=== PATIENT | male | born 1950 | race Caucasian/White ===

== ENCOUNTER 2019-12-09 13:48 | Emergency (ER) | payer MEDICARE, OTHER, SELFPAY ==
[2019-12-09 13:58] VITALS: BP 148/85; PULSE 83; RESP 18; TEMP 37.4; O2SAT 97; BMI 23.0
--- NOTE | 2019-12-09 14:24 | ED_ITS ---
HPI - General Adult General: Chief complaint: General Medical Stated complaint: light headed, nausea, abd pain, joint pain Time Seen by Provider: 12/09/19 14:11 History of Present Illness: HPI narrative: Pt states his fibernicee worked in [place] working with covid-19 pts. she had some symptoms of gi upset and sweats, she never got tested. 6 days after interacting with her he developed chills and sweats, body aches, gi upset, nausea, right sided abd pain. He states he hasnt been able to eat anything. He is worried he may have covid Onset (ago): day(s) (12 days) Location: back, abdomen, upper extremity and lower extremity Radiation: back and abdomen Severity: moderate Severity scale (1-10): 6 Quality: aching Pain Consistency: intermittent Relieving factors: none Exacerbating factors: none Associated symptoms: Reports diaphoresis, decreased appetite, fevers/chills, headache(s), malaise and nausea; Deny chest pain, cough, dyspnea, rash or vomiting Treatments prior to arrival: none Review of Systems General: Reports: 10 or more systems reviewed and unremarkable except in HPI and below Const: Reports: chills, body aches, fatigue, malaise, night sweats and diaphoresis ENMT: Denies: throat pain Card: Denies: chest pain or swelling of feet/ankles Resp: Denies: shortness of breath or productive cough GI: Reports: abdominal pain and nausea; Denies: vomiting Musc: Reports: back pain and extremity pain; Denies: extremity swelling Skin/Breast: Denies: rash Neuro: Reports: headache PFS ED PFSH: Social History Smoking and tobacco status: never smoked Physical Exam Const: COMMON NORMALS: no apparent distress and oriented x3 GENERAL APPEARANCE: cooperative; not in distress HENMT: COMMON NORMALS: normocephalic HEAD & SCALP: normal to inspection and normocephalic MOUTH: oral and palatal mucosa normal and lip normal THROAT: posterior oropharynx normal and tonsils normal Neck/C-Spine: COMMON NORMALS: full ROM, no lymphadenopathy, supple and no meningeal signs GENERAL: Yes normal visual inspection and Yes trachea midline Chest: COMMONS NORMALS: inspection of chest normal Resp: COMMON NORMALS: normal respiratory effort and clear to auscultation bilaterally EFFORT & INSPECTION: Yes able to speak in complete sentences and No respiratory distress AUSCULTATION: clear to auscultation bilaterally, no rales, no rhonchi and no wheezes Cardio: COMMON NORMALS: regular rate, regular rhythm, S1 normal heart sound, S2 normal heart sound and no murmurs RATE: regular rate RHYTHM: regular rhythm HEART SOUNDS: S1 normal and S2 normal PERIPHERAL PULSES: radial pulses present and dorsalis pedis pulses present GI: COMMON NORMALS: normal to inspection, nondistended, normoactive bowel sounds, soft to palpation and non-tender INSPECTION: Yes normal to inspection AUSCULTATION: Yes normoactive bowel sounds PALPATION: Yes soft, No tender, No guarding and No rigid RECTAL EXAM: Yes deferred : COMMON NORMALS: Yes no CVA tenderness BLADDER/KIDNEY EXAM: Yes no CVA tenderness Back/Pelvis: COMMON NORMALS: no CVA tenderness Extremity: COMMON NORMALS: normal to inspection, full ROM, normal capillary refill, no calf tenderness and no pedal edema Neuro: COMMON NORMALS: oriented x3, CN's II-XII intact bilaterally, moves all extremities and no focal motor deficits MENINGEAL SIGNS: Yes no meningeal signs Skin: COMMON NORMALS: no rashes or lesions noted GENERAL SKIN EXAM: no rash es or lesions noted Course Vital Signs: Vital signs: Vital Signs Temperature 99.4 F 12/09/19 13:58 Pulse Rate 84 12/09/19 17:14 Respiratory Rate 18 12/09/19 17:14 Blood Pressure 164/77 12/09/19 17:14 Pulse Oximetry 96 12/09/19 17:14 [facility] - General Adult Lab Data: Attestation: I reviewed the patient's lab results. Labs: Lab Results 12/09/19 12/09/19 12/09/19 Range/Units 15:15 15:15 15:30 WBC 5.1 (4.0-10.0) 10^3/ uL RBC 4.89 (4.1-5.3) 10^6/u L Hgb 13.4 (11.7-16.6) g/dL Hct 41.9 L (42.0-52.0) % MCV 85.7 (80-94) fL MCH 27.4 L (28.0-34.0) pg MCHC 32.0 (30.0-36.0) g/dL RDW 18.2 H (12.1-15.1) % Plt Count 345 (130-400) 10^3/c mm MPV 9.3 (7.4-10.4) fL Neut % (Auto) 62.1 % Lymph % (Auto) 27.6 % [place] % (Auto) 9.7 % Eos % (Auto) 0.2 % Baso % (Auto) 0.2 % Neut # (Auto) 3.2 (1.8-7.7) 10^3/u L Lymph # (Auto) 1.4 (0.8-4.8) 10^3/u L [place] # (Auto) 0.5 (0.2-0.9) 10^3/u L Eos # (Auto) 0.0 (0.0-0.8) 10^3/u L Baso # (Auto) 0.0 (0.0-0.1) 10^3/u L Nucleated RBC % (a uto) 0 % Nucleated RBCs # 0.0 /100WBC Sodium 139 (136-145) mmol/L Potassium 4.3 (3.5-5.1) mmol/L Chloride 104 (98-107) mmol/L Carbon Dioxide 23 (22-29) mmol/L Anion Gap 16.3 (5-19) BUN 15 (8-23) mg/dL Creatinine 0.9 (0.7-1.2) mg/dL GFR Calculation 83.9 L (90-130) mL/min Glucose 116 H (65-115) mg/dL Calculated Osmolal ity 285 (285-295) mOsm/k g Calcium 9.3 (8.5-10.5) mg/dL Total Bilirubin 0.3 (0.15-1.2) mg/dL AST 13 (0-40) U/L ALT 12 (0-41) U/L Alkaline Phosphata se 40 (40-130) IU/L Total Protein 7.6 (6.6-8.7) g/dL Albumin 4.7 (3.5-5.2) g/dL Globulin 2.9 (1.3-4.6) g/dL Influenza Type A A g Negative (Negative) Influenza Type B A g Negative (Negative) Imaging Data^: CT Abd/Pel: Radiologist's impression: Patient: Franco Queen #: [id number] : 1950cct#:[id number] Age/Sex: 69 / DILCIAM Date: 12/09/19 Loc: ERRoom/Bed: Attending Dr: Ordering Provider/Ordering MD: Helene Aiken DO Date of Service: 12/09/19 Procedure(s): CT abdomen pelvis w con* [id number] Accession Number(s): [id number] Report Number: [id number] PROCEDURE INFORMATION: Exam: CT Abdomen And Pelvis With Contrast Exam date and time: 12/09/2019 4:44 PM Age: 69 years old Clinical indication: Abdominal pain; Additional info: Right sided abd pain TECHNIQUE: Imaging protocol: Computed tomography of the abdomen and pelvis with intravenous contrast. Total DLP: 749.35 mGy-cm Radiation optimization: All CT scans at this facility use at least one of these dose optimization techniques: automated exposure control; mA and/or kV adjustment per patient size (includes targeted exams where dose is matched to clinical indication); or iterative reconstruction. Contrast material: OMNI 300; Contrast volume: 95 ml; Contrast route: IV; COMPARISON: No relevant prior studies available. FINDINGS: Liver: Normal. No mass. Gallbladder and bile ducts: Mild cholelithiasis. The bile ducts are normal. Pancreas: Normal. No ductal dilation. Spleen: Normal. No splenomegaly. Adrenals: Normal. No mass. Kidneys and ureters: 0.9 cm oval hypodensity in the left kidney. The right kidney is normal. Stomach and bowel: Scattered nondifferential air-fluid levels in nonobstructed small bowel. The colon is unremarkable. The stomach is normal. Appendix: The appendix is normal. Intraperitoneal space: Unremarkable. No free air. No significant fluid collection. Vasculature: Unremarkable. No abdominal aortic aneurysm. Lymph nodes: Unremarkable. No enlarged lymph nodes. Bladder: Posterior left urinary bladder diverticulum. Reproductive: Mildly enlarged inhomogenous prostate. Bones/joints: Unremarkable. No acute fracture. Soft tissues: Fat containing right inguinal hernia. CT/CT abdomen pelvis w con* [id number] IMPRESSION: 1. No acute abnormality identified in the abdomen or pelvis. 2. Scattered gas within the small bowel could represent ileus or enteritis. 3. Cholelithiasis. 4. Urinary bladder diverticulum. 5. Mildly enlarged prostate gland. 6. Subcentimeter probable left renal cyst. No further workup is recommended. Radiation Dose CTDIVOL = (mGy): DLP = 749.35 (mGy-cm) Dictated By:Dion Marquis Signed By:Dion MarquisSigned Date/Time:12/09/19 6419 CXR: Attestation: I personally reviewed and interpreted this imaging study as follows: Radiologist's impression: nad Discharge Plan Discharge Prescriptions: No Action famotidine 10 mg Tablet 10 mg PO BID RF: 0 testosterone cypionate 200 mg/mL oil 200 mg SUBCUT Q14D RF: 0 testosterone 1.62 % (20.25 mg/1.25 gram) Gel In Packet 1 packet topical DAILY RF: 0 Coding Level of Care Code ED Screw Machine Adjuster Automatic for Chg Fwd Exam Comprehensive
--- NOTE | 2019-12-09 14:36 | CTR_ITS ---
PROCEDURE INFORMATION: Exam: CT Abdomen And Pelvis With Contrast Exam date and time: 12/09/2019 4:44 PM Age: 69 years old Clinical indication: Abdominal pain; Additional info: Right sided abd pain TECHNIQUE: Imaging protocol: Computed tomography of the abdomen and pelvis with intravenous contrast. Total DLP: 749.35 mGy-cm Radiation optimization: All CT scans at this facility use at least one of these dose optimization techniques: automated exposure control; mA and/or kV adjustment per patient size (includes targeted exams where dose is matched to clinical indication); or iterative reconstruction. Contrast material: OMNI 300; Contrast volume: 95 ml; Contrast route: IV; COMPARISON: No relevant prior studies available. FINDINGS: Liver: Normal. No mass. Gallbladder and bile ducts: Mild cholelithiasis. The bile ducts are normal. Pancreas: Normal. No ductal dilation. Spleen: Normal. No splenomegaly. Adrenals: Normal. No mass. Kidneys and ureters: 0.9 cm oval hypodensity in the left kidney. The right kidney is normal. Stomach and bowel: Scattered nondifferential air-fluid levels in nonobstructed small bowel. The colon is unremarkable. The stomach is normal. Appendix: The appendix is normal. Intraperitoneal space: Unremarkable. No free air. No significant fluid collection. Vasculature: Unremarkable. No abdominal aortic aneurysm. Lymph nodes: Unremarkable. No enlarged lymph nodes. Bladder: Posterior left urinary bladder diverticulum. Reproductive: Mildly enlarged inhomogenous prostate. Bones/joints: Unremarkable. No acute fracture. Soft tissues: Fat containing right inguinal hernia. CT/CT abdomen pelvis w con* [id number] IMPRESSION: 1. No acute abnormality identified in the abdomen or pelvis. 2. Scattered gas within the small bowel could represent ileus or enteritis. 3. Cholelithiasis. 4. Urinary bladder diverticulum. 5. Mildly enlarged prostate gland. 6. Subcentimeter probable left renal cyst. No further workup is recommended. Radiation Dose CTDIVOL = (mGy): DLP = 749.35 (mGy-cm)
--- NOTE | 2019-12-09 14:36 | XR_ITS ---
WS: [id number] CHEST XRAY TECHNIQUE: Portable chest. CLINICAL INFORMATION: covid exposure COMPARISON: None. FINDINGS: Heart: Normal cardiac silhouette. Lungs: Chronic emphysematous changes. No acute pulmonary infiltrates. Calcified granulomas. Bones: Normal visualized bony structures. XR/XR chest 1V portable [id number] IMPRESSION: No acute chest findings
[2019-12-09 15:06] VITALS: RESP 17
[2019-12-09] MEDS: morphine 4 mg/mL SDV 1 mL IVP (15:06)
[2019-12-09] MEDS: ondansetron 2 mg/ML SDV 2 mL 4 MG IVP (15:09)
[2019-12-09] MEDS: sodium chloride 0.9% 500 ML IV (15:13)
[2019-12-09 15:52] VITALS: BP 134/79; PULSE 80; O2SAT 97
[2019-12-09 16:02] LABS: Basophils % 0.2 %; Eosinophils % 0.2 %; Hematocrit 41.9 % (42.0-52.0); Hemoglobin 13.4 g/dL (11.7-16.6); Lymphocytes # 1.4 10^3/uL (0.8-4.8); Lymphocytes % 27.6 %; Mean Corpuscular Hemoglobin 27.4 pg (28.0-34.0); Mean Corpuscular Volume 85.7 fL (80-94); Mean Platelet Volume 9.3 fL (7.4-10.4); Monocytes # 0.5 10^3/uL (0.2-0.9); Monocytes % 9.7 %; Neutrophils # 3.2 10^3/uL (1.8-7.7); Neutrophils % 62.1 %; Nucleated Red Blood Cells % 0 %; Platelet Count 345 10^3/cmm (130-400); Red Blood Count 4.89 10^6/uL (4.1-5.3); Red Cell Distribution Width 18.2 % (12.1-15.1); White Blood Count 5.1 10^3/uL (4.0-10.0)
[2019-12-09 16:17] LABS: Alanine Aminotransferase 12 U/L (0-41); Albumin Level 4.7 g/dL (3.5-5.2); Alkaline Phosphatase 40 IU/L (40-130); Anion Gap 16.3 (5-19); Aspartate Amino Transferase 13 U/L (0-40); Blood Urea Nitrogen 15 mg/dL (8-23); Calcium 9.3 mg/dL (8.5-10.5); Carbon Dioxide 23 mmol/L (22-29); Chloride 104 mmol/L (98-107); Creatinine Clr Calc Pharmacy 86.0049; Globulin 2.9 g/dL (1.3-4.6); Glomerular Filtration Rate 83.9 mL/min (90-130); Glucose 116 mg/dL (65-115); Osmolality Calculated 285 mOsm/kg (285-295); Potassium 4.3 mmol/L (3.5-5.1); Sodium 139 mmol/L (136-145); Total Bilirubin 0.3 mg/dL (0.15-1.2); Total Protein 7.6 g/dL (6.6-8.7)
[2019-12-09 16:24] LABS: Influenza A by IFA Negative (Negative); Influenza B by IFA Negative (Negative)
[2019-12-09] MEDS: iohexol 300 mg/mL 100 mL Btl IV (16:51)
[2019-12-09 17:14] VITALS: BP 164/77; PULSE 84; RESP 18; O2SAT 96
--- NOTE | 2019-12-09 17:18 | USR_ITS ---
PROCEDURE INFORMATION: Exam: US Abdomen Limited, Right Upper Quadrant Exam date and time: 12/09/2019 6:00 PM Age: 69 years old Clinical indication: Abdominal pain; Acute; Patient HX: 1 episode of nausea without vomiting. PT can't pin point pain; Additional info: Abnl CT TECHNIQUE: Imaging protocol: Real-time ultrasound of the abdomen with image documentation. Examination was focused on the right upper quadrant. COMPARISON: CT abdomen pelvis w con* [id number] 12/09/2019 4:56 PM FINDINGS: Liver: The liver is of normal echogenicity measuring 16.1 cm. Gallbladder: Gallbladder wall thickness 2.6 mm. Small amount of gallbladder sludge. No visible calculi. Common bile duct: CBD 4.5 mm. Pancreas: Visualized pancreas is unremarkable. Right kidney: Normal. No mass. No hydronephrosis. US/US gall bladder [id number] IMPRESSION: 1. Small amount of sludge within an otherwise normal gallbladder.
[2019-12-09 18:03] VITALS: BP 142/89; PULSE 74; RESP 18; O2SAT 97
--- NOTE | 2019-12-09 18:03 | PC.NURSE ---
Ultrasound at bedside.
--- NOTE | 2019-12-09 18:11 | W.ED.GENADLT ---
HPI - General Adult General: Chief complaint: General Medical Stated complaint: light headed, nausea, abd pain, joint pain Time Seen by Provider: 12/09/19 14:11 History of Present Illness: HPI narrative: pt has a fiance that has been working with covid 19 pts in [place] and he was exposed to her 12 days ago, then 6 days later he started getting body aches chills and sweats at night, right sided abd pain and severe nausea. she had symptoms as well but never got tested and is now working in another state. Onset (ago): day(s) (12) Location: back, abdomen, upper extremity and lower extremity Severity scale (1-10): 6 Quality: aching Relieving factors: none Exacerbating factors: none Associated symptoms: Reports malaise and nausea; Deny chest pain, dyspnea, headache(s) or rash Treatments prior to arrival: none Review of Systems General: Reports: 10 or more systems reviewed and unremarkable except in HPI and below Const: Reports: chills, body aches, change in appetite, fatigue, malaise and night sweats ENMT: Denies: throat pain Card: Denies: chest pain or swelling of feet/ankles Resp: Denies: shortness of breath or productive cough GI: Reports: abdominal pain and nausea; Denies: diarrhea, constipation or blood in stool : Denies: flank pain or difficulty urinating Musc: Denies: extremity swelling Skin/Breast: Denies: rash Neuro: Denies: headache, numbness in extremities or weakness in extremities PFSH ED PFSH: Social History Smoking and tobacco status: never smoked Physical Exam Const: COMMON NORMALS: no apparent distress and oriented x3 GENERAL APPEARANCE: cooperative; not in distress HENMT: COMMON NORMALS: normocephalic HEAD & SCALP: normal to inspection and normocephalic MOUTH: oral and palatal mucosa normal and lip normal THROAT: posterior oropharynx normal and tonsils normal Neck/C-Spine: COMMON NORMALS: full ROM, no lymphadenopathy, supple and no meningeal signs GENERAL: Yes normal visual inspection and Yes trachea midline Chest: COMMONS NORMALS: inspection of chest normal Resp: COMMON NORMALS: normal respiratory effort and clear to auscultation bilaterally EFFORT & INSPECTION: Yes able to speak in complete sentences and No respiratory distress AUSCULTATION: clear to auscultation bilaterally, no rales, no rhonchi and no wheezes Cardio: COMMON NORMALS: regular rate, regular rhythm, S1 normal heart sound, S2 normal heart sound and no murmurs RATE: regular rate RHYTHM: regular rhythm HEART SOUNDS: S1 normal and S2 normal PERIPHERAL PULSES: radial pulses present and dorsalis pedis pulses present GI: COMMON NORMALS: normal to inspection, nondistended, normoactive bowel sounds and soft to palpation INSPECTION: Yes normal to inspection AUSCULTATION: Yes normoactive bowel sounds PALPATION: Yes soft, No tender, No guarding and No rigid RECTAL EXAM: Yes deferred : COMMON NORMALS: Yes no CVA tenderness BLADDER/KIDNEY EXAM: Yes no CVA tenderness Back/Pelvis: COMMON NORMALS: no CVA tenderness Extremity: COMMON NORMALS: normal to inspection, full ROM, normal capillary refill, no calf tenderness and no pedal edema Neuro: COMMON NORMALS: oriented x3, CN's II-XII intact bilaterally, moves all extremities and no focal motor deficits MENINGEAL SIGNS: Yes no meningeal signs Skin: COMMON NORMALS: no rashes or lesions noted GENERAL SKIN EXAM: no rashes or lesions noted Course Vital Signs: Vital signs: Vital Signs Temperature 99.4 F 12/09/19 13:58 Pulse Rate 74 12/09/19 18:03 Respiratory Rate 18 12/09/19 18:03 Blood Pressure 142/89 12/09/19 18:03 Pulse Oximetry 97 12/09/19 18:03 [facility] - General Adult Lab Data: Labs: Lab Results 12/09/19 12/09/19 12/09/19 Range/Units 15:15 15:15 15:30 WBC 5.1 (4.0-10.0) 10^3/ uL RBC 4.89 (4.1-5.3) 10^6/u L Hgb 13.4 (11.7-16.6) g/dL Hct 41.9 L (42.0-52.0) % MCV 85.7 (80-94) fL MCH 27.4 L (28.0-34.0) pg MCHC 32.0 (30.0-36.0) g/dL RDW 18.2 H (12.1-15.1) % Plt Count 345 (130-400) 10^3/c mm MPV 9.3 (7.4-10.4) fL Neut % (Auto) 62.1 % Lymph % (Auto) 27.6 % [place] % (Auto) 9.7 % Eos % (Auto) 0.2 % Baso % (Auto) 0.2 % Neut # (Auto) 3.2 (1.8-7.7) 10^3/u L Lymph # (Auto) 1.4 (0.8-4.8) 10^3/u L [place] # (Auto) 0.5 (0.2-0.9) 10^3/u L Eos # (Auto) 0.0 (0.0-0.8) 10^3/u L Baso # (Auto) 0.0 (0.0-0.1) 10^3/u L Nucleated RBC % (a uto) 0 % Nucleated RBCs # 0.0 /100WBC Sodium 139 (136-145) mmol/L Potassium 4.3 (3.5-5.1) mmol/L Chloride 104 (98-107) mmol/L Carbon Dioxide 23 (22-29) mmol/L Anion Gap 16.3 (5-19) BUN 15 (8-23) mg/dL Creatinine 0.9 (0.7-1.2) mg/dL GFR Calculation 83.9 L (90-130) mL/min Glucose 116 H (65-115) mg/dL Calculated Osmolal ity 285 (285-295) mOsm/k g Calcium 9.3 (8.5-10.5) mg/dL Total Bilirubin 0.3 (0.15-1.2) mg/dL AST 13 (0-40) U/L ALT 12 (0-41) U/L Alkaline Phosphata se 40 (40-130) IU/L Total Protein 7.6 (6.6-8.7) g/dL Albumin 4.7 (3.5-5.2) g/dL Globulin 2.9 (1.3-4.6) g/dL Influenza Type A A g Negative (Negative) Influenza Type B A g Negative (Negative) Discharge Plan Discharge Prescriptions: No Action famotidine 10 mg Tablet 10 mg PO BID RF: 0 testosterone cypionate 200 mg/mL oil 200 mg SUBCUT Q14D RF: 0 testosterone 1.62 % (20.25 mg/1.25 gram) Gel In Packet 1 packet topical DAILY RF: 0 Coding Level of Care Code ED Spot Man for Chg Fwd Exam Comprehensive
[2019-12-09 19:45] LABS: Urine Appearance Clear (CLEAR); Urine Color Yellow (Yellow)
[2019-12-09 19:46] LABS: Add Urine Culture? No; Bacteria Urine TRACE; Bilirubin Urine Neg (NEGATIVE); Blood Urine Neg (Negative); Glucose Urine UA Norm (Normal); Ketones Urine Negative (Negative); Leukocyte Esterase Urine Negative (Negative); Nitrate Urine Negative (Negative); Protein Urine Neg (Negative); Specific Gravity, Urine 1.015 (1.005-1.030); Urobilinogen Urine Norm (Negative); pH Urine 5 (5-7)
--- NOTE | 2019-12-09 19:54 | W.ED.GENADLT ---
HPI - General Adult General: Chief complaint: General Medical Stated complaint: light headed, nausea, abd pain, joint pain Time Seen by Provider: 12/09/19 14:11 History of Present Illness: HPI narrative: Patient was initially seen by Helene Aiken, please see her note for her history, physical exam and medical decision-making notes. Patient states to me that he has had diffuse abdominal discomfort but denies any chest pain or shortness of breath. He said no urinary symptoms. He does complain of significant nausea but no vomiting. Patient has been exposed to COVID-19 but has not had a cough, is not been short of breath and he is not had a fever. His abdominal pain is diffuse in nature and described as intermittent and cramping. He has had no known ill exposures. Location: back, abdomen, upper extremity and lower extremity Severity scale (1-10): 6 Quality: aching Relieving factors: none Exacerbating factors: none Treatments prior to arrival: none PFSH ED PFSH: Social History Smoking and tobacco status: never smoked Physical Exam Const: COMMON NORMALS: no apparent distress, oriented x3, no limitations, healthy appearing and well nourished EXAM LIMITATIONS: no altered mental status GENERAL APPEARANCE: cooperative, well kempt and well developed ORIENTATION/CONSCIOUSNESS: Yes awake HENMT: COMMON NORMALS: normocephalic, head/scalp atraumatic, hearing grossly normal bilaterally, external ears normal, EAC's normal, external nose normal and moist oral mucous membranes HEAD & SCALP: normal to inspection, normocephalic and atraumatic FACE & SINUS: normal facial exam and face symmetric NOSE: external nose normal and nares normal EXTERNAL EAR: Yes external ears normal EXTERNAL AUDITORY CANAL: EAC's normal MOUTH: oral and palatal mucosa normal and tongue normal Eye: COMMON NORMALS: PERRL, EOMs intact bilaterally, conjunctivae normal and no scleral icterus GENERAL EYE: normal appearance of both eyes and normal light reflex CONJUNCTIVA: Yes conjunctivae normal SCLERA: sclerae normal CORNEA: Yes corneas normal PUPIL: Yes PERRL DIRECT OPHTHALMOSCOPY: Yes normal light reflex Neck/C-Spine: COMMON NORMALS: full ROM, no lymphadenopathy, supple, no meningeal signs and no JVD GENERAL: Yes normal visual inspection and Yes trachea midline CERVICAL SPINE: Yes cervical ROM normal Chest: COMMONS NORMALS: inspection of chest normal and palpation of chest normal Resp: COMMON NORMALS: normal respiratory effort, no retractions, no use of accessory muscles and clear to auscultation bilaterally EFFORT & INSPECTION: Yes able to speak in complete sentences AUSCULTATION: clear to auscultation bilaterally Cardio: COMMON NORMALS: no JVD, regular rate, regular rhythm, S1 normal heart sound, S2 normal heart sound, no gallops, no clicks, no murmurs and no rub JUGULAR VENOUS DISTENTION: no JVD RATE: regular rate RHYTHM: regular rhythm HEART SOUNDS: S1 normal and S2 normal GI: COMMON NORMALS: soft to palpation, non-tender, no hepatosplenomegaly and no masses INSPECTION: Yes normal to inspection PALPATION: Yes soft and Yes no hepatosplenomegaly : COMMON NORMALS: Yes no CVA tenderness BLADDER/KIDNEY EXAM: Yes no CVA tenderness Back/Pelvis: COMMON NORMALS: no CVA tenderness, thoracic and lumbar spine normal to inspection, no thoracic nor lumbar tenderness and thoraco-lumbar ROM normal Extremity: COMMON NORMALS: normal to inspection, full ROM, normal capillary refill, no joint enlargement, no clubbing, cyanosis or edema and no calf tenderness Neuro: COMMON NORMALS: oriented x3, CN's II-XII intact bilaterally, moves all extremities, no focal motor deficits and no sensory deficits noted MENINGEAL SIGNS: Yes no meningeal signs Psych: COMMON NORMALS: mental status grossly normal, thought process normal, cooperative, affect normal, speech normal and activity/motor behavior normal APPEARANCE: Yes well kempt SPEECH: Yes normal speech THOUGHT PROCESS: normal thought process Skin: COMMON NORMALS: no rashes or lesions noted, skin turgor normal, no jaundice, no petechiae and no mottling GENERAL SKIN EXAM: no rashes or lesions noted and turgor normal Course Vital Signs: Vital signs: Vital Signs Temperature 99.4 F 12/09/19 13:58 Pulse Rate 74 12/09/19 18:03 Respiratory Rate 18 12/09/19 18:03 Blood Pressure 142/89 12/09/19 18:03 Pulse Oximetry 97 12/09/19 18:03 MDM - General Adult MDM Narrative: Medical decision making narrative: The patient CT scan shows an enteritis but the gallbladder ultrasound shows nothing acute. He feels as though the symptoms are consistent with a gastrointestinal illness. The patient is a retired physician. He agrees to go home with trying Cipro and Flagyl along with Phenergan for nausea. He declines any further evaluation and care and would like to be discharged. On exam the patient shows no sign of peritonitis. He has no fever and his labs are unremarkable. He does agree to return should his symptoms change or worsen he understands he will be contacted with the results of his COVID-19 testing. Lab Data: Attestation: I reviewed the patient's lab results. Labs: Lab Results 12/09/19 12/09/19 12/09/19 Range/Units 15:15 15:15 15:30 WBC 5.1 (4.0-10.0) 10^3/ uL RBC 4.89 (4.1-5.3) 10^6/u L Hgb 13.4 (11.7-16.6) g/dL Hct 41.9 L (42.0-52.0) % MCV 85.7 (80-94) fL MCH 27.4 L (28.0-34.0) pg MCHC 32.0 (30.0-36.0) g/dL RDW 18.2 H (12.1-15.1) % Plt Count 345 (130-400) 10^3/c mm MPV 9.3 (7.4-10.4) fL Neut % (Auto) 62.1 % Lymph % (Auto) 27.6 % [place] % (Auto) 9.7 % Eos % (Auto) 0.2 % Baso % (Auto) 0.2 % Neut # (Auto) 3.2 (1.8-7.7) 10^3/u L Lymph # (Auto) 1.4 (0.8-4.8) 10^3/u L [place] # (Auto) 0.5 (0.2-0.9) 10^3/u L Eos # (Auto) 0.0 (0.0-0.8) 10^3/u L Baso # (Auto) 0.0 (0.0-0.1) 10^3/u L Nucleated RBC % (a uto) 0 % Nucleated RBCs # 0.0 /100WBC Sodium 139 (136-145) mmol/L Potassium 4.3 (3.5-5.1) mmol/L Chloride 104 (98-107) mmol/L Carbon Dioxide 23 (22-29) mmol/L Anion Gap 16.3 (5-19) BUN 15 (8-23) mg/dL Creatinine 0.9 (0.7-1.2) mg/dL GFR Calculation 83.9 L (90-130) mL/min Glucose 116 H (65-115) mg/dL Calculated Osmolal ity 285 (285-295) mOsm/k g Calcium 9.3 (8.5-10.5) mg/dL Total Bilirubin 0.3 (0.15-1.2) mg/dL AST 13 (0-40) U/L ALT 12 (0-41) U/L Alkaline Phosphata se 40 (40-130) IU/L Total Protein 7.6 (6.6-8.7) g/dL Albumin 4.7 (3.5-5.2) g/dL Globulin 2.9 (1.3-4.6) g/dL Urine Color (Yellow) Urine Appearance (CLEAR) Urine pH (5-7) Ur Specific Gravit y (1.005-1.030) Urine Protein (Negative) Urine Glucose (UA) (Normal) Urine Ketones (Negative) Urine Blood (Negative) Urine Nitrate (Negative) Urine Bilirubin (NEGATIVE) Urine Urobilinogen (Negative) mg/dL Ur Leukocyte Jessica ase (Negative) Urine RBC (0-2) /hpf Urine WBC (0-5) /hpf Ur Squamous Epith Cells (0-5) Urine Bacteria (NONE) Influenza Type A A g Negative (Negative) Influenza Type B A g Negative (Negative) 12/09/19 Range/Units 18:47 WBC (4.0-10.0) 10^3/ uL RBC (4.1-5.3) 10^6/u L Hgb (11.7-16.6) g/dL Hct (42.0-52.0) % MCV (80-94) fL MCH (28.0-34.0) pg MCHC (30.0-36.0) g/dL RDW (12.1-15.1) % Plt Count (130-400) 10^3/c mm MPV (7.4-10.4) fL Neut % (Auto) % Lymph % (Auto) % [place] % (Auto) % Eos % (Auto) % Baso % (Auto) % Neut # (Auto) (1.8-7.7) 10^3/u L Lymph # (Auto) (0.8-4.8) 10^3/u L [place] # (Auto) (0.2-0.9) 10^3/u L Eos # (Auto) (0.0-0.8) 10^3/u L Baso # (Auto) (0.0-0.1) 10^3/u L Nucleated RBC % (a uto) % Nucleated RBCs # /100WBC Sodium (136-145) mmol/L Potassium (3.5-5.1) mmol/L Chloride (98-107) mmol/L Carbon Dioxide (22-29) mmol/L Anion Gap (5-19) BUN (8-23) mg/dL Creatinine (0.7-1.2) mg/dL GFR Calculation (90-130) mL/min Glucose (65-115) mg/dL Calculated Osmolal ity (285-295) mOsm/k g Calcium (8.5-10.5) mg/dL Total Bilirubin (0.15-1.2) mg/dL AST (0-40) U/L ALT (0-41) U/L Alkaline Phosphata se (40-130) IU/L Total Protein (6.6-8.7) g/dL Albumin (3.5-5.2) g/dL Globulin (1.3-4.6) g/dL Urine Color Yellow (Yellow) Urine Appearance Clear (CLEAR) Urine pH 5 (5-7) Ur Specific Gravit y 1.015 (1.005-1.030) Urine Protein Neg (Negative) Urine Glucose (UA) Norm (Normal) Urine Ketones Negative (Negative) Urine Blood Neg (Negative) Urine Nitrate Negative (Negative) Urine Bilirubin Neg (NEGATIVE) Urine Urobilinogen Norm (Negative) mg/dL Ur Leukocyte Jessica ase Negative (Negative) Urine RBC None (0-2) /hpf Urine WBC None (0-5) /hpf Ur Squamous Epith Cells None (0-5) Urine Bacteria Trace (NONE) Influenza Type A A g (Negative) Influenza Type B A g (Negative) Imaging Data^: CT Abd/Pel: Radiologist's impression: [facility] [address] [place] [address] CT Scan Report Signed Patient: Mitchell Queen Unit #: [id number] : [id number] Age/Sex: 69 / M ADM Date: 12/09/19 Loc: ER Room/Bed: Attending Dr: Ordering Provider/Ordering MD: Helene Aiken DO Date of Service: 12/09/19 Procedure(s): CT abdomen pelvis w con* [id number] Accession Number(s): [id number] Report Number: [id number] PROCEDURE INFORMATION: Exam: CT Abdomen And Pelvis With Contrast Exam date and time: 12/09/2019 4:44 PM Age: 69 years old Clinical indication: Abdominal pain; Additional info: Right sided abd pain TECHNIQUE: Imaging protocol: Computed tomography of the abdomen and pelvis with intravenous contrast. Total DLP: 749.35 mGy-cm Radiation optimization: All CT scans at this facility use at least one of these dose optimization techniques: automated exposure control; mA and/or kV adjustment per patient size (includes targeted exams where dose is matched to clinical indication); or iterative reconstruction. Contrast material: OMNI 300; Contrast volume: 95 ml; Contrast route: IV; COMPARISON: No relevant prior studies available. FINDINGS: Liver: Normal. No mass. Gallbladder and bile ducts: Mild cholelithiasis. The bile ducts are normal. Pancreas: Normal. No ductal dilation. Spleen: Normal. No splenomegaly. Adrenals: Normal. No mass. Kidneys and ureters: 0.9 cm oval hypodensity in the left kidney. The right kidney is normal. Stomach and bowel: Scattered nondifferential air-fluid levels in nonobstructed small bowel. The colon is unremarkable. The stomach is normal. Appendix: The appendix is normal. Intraperitoneal space: Unremarkable. No free air. No significant fluid collection. Vasculature: Unremarkable. No abdominal aortic aneurysm. Lymph nodes: Unremarkable. No enlarged lymph nodes. Bladder: Posterior left urinary bladder diverticulum. Reproductive: Mildly enlarged inhomogenous prostate. Bones/joints: Unremarkable. No acute fracture. Soft tissues: Fat containing right inguinal hernia. CT/CT abdomen pelvis w con* [id number] IMPRESSION: 1. No acute abnormality identified in the abdomen or pelvis. 2. Scattered gas within the small bowel could represent ileus or enteritis. 3. Cholelithiasis. 4. Urinary bladder diverticulum. 5. Mildly enlarged prostate gland. 6. Subcentimeter probable left renal cyst. No further workup is recommended. Radiation Dose CTDIVOL = (mGy): DLP = 749.35 (mGy-cm) Dictated By: Dion Marquis Signed By: Dion Marquis Signed Date/Time: 12/09/191715 DD/ 15 US: My impression: Ultrasound gallbladder, technologist interpretation -nonshadowing debris present within the gallbladder but wall not thickened and no pericholecystic fluid. Liver pancreas, bile duct aorta, IVC and all other findings normal. Please see formal report. CXR: My impression: No acute cardiopulmonary findings. Discharge Plan Discharge Patient Disposition: Home, Self-Care Clinical Impression: Abdominal pain Qualifiers: Abdominal location: generalized Qualified Code(s): R10.84 - Generalized abdominal pain Condition: Stable Prescriptions: New metronidazole [Flagyl] 500 mg tablet 500 mg PO TID 10 Days Qty: 30 RF: 0 ciprofloxacin HCl [Cipro] 500 mg tablet 500 mg PO BID Qty: 20 RF: 0 promethazine 25 mg tablet 25 mg PO Q4H PRN (Reason: nausea and vomiting) Qty: 20 RF: 0 No Action famotidine 10 mg Tablet 10 mg PO BID RF: 0 testosterone cypionate 200 mg/mL oil 200 mg SUBCUT Q14D RF: 0 testosterone 1.62 % (20.25 mg/1.25 gram) Gel In Packet 1 packet topical DAILY RF: 0 Discharge Orders: Discharge Order (Routine); Ordered 12/09/19 Ordered By: Luisa Marrero Referrals: Charlie Galan MD [Physician] - 1-3 days Discharge Diet: Advance as tolerated and Clear Liquid Discharge Activity: Increase activity as tolerated Patient Instructions: Abdominal Pain (ED) Activity Restrictions/Additional Instructions: Please return to the ER immediately for any of the signs or symptoms listed on your discharge instruction sheets, worsening/changing of your symptoms, you are not getting better as quickly as expected, or for ANY other cause or concerns. If you develop any new symptoms such as fever, chest pain, shortness of breath, you began to vomit despite the Phenergan, you have blood in your stools or any other concerns please return to the ER immediately. Sign Out Sign Out Data: Patient Sign Out occurred on 12/09/19 at 18:27. Patient's care was discussed, and care was transferred from to Luisa Marrero. 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
[2019-12-09] MEDS: metroNIDAZOLE 500 MG Tablet PO (20:36)
[2019-12-09] MEDS: ciprofloxacin 500 mg Tablet PO (20:36)
[2019-12-09 20:53] VITALS: BP 132/84; PULSE 82; RESP 16; O2SAT 98
[2019-12-10 23:51] LABS: Quest SARS-CoV-2 RNA See Report
== END 2019-12-09 20:57 | disposition home or self-care (01) ==
PROVIDERS: Emergency Medicine; Emergency Provider Emergency Medicine
DX: R10.84 Generalized abdominal pain (principal)
CPT/HCPCS: 12345; 36415; 71045; 74177; 76705; 80053; 81001; 85025; 87040; 87635; 87804; 96361; 96374; 96375; 99283; 99284; J2270; J2405; J7040; Q9967